=== PATIENT | male | born 1970 | race Caucasian/White ===

== ENCOUNTER 2018-07-27 12:30 | Outpatient (CLI) | payer BC ==
[~2018-07-27] VITALS: Ht 172.7 cm; Wt 94.8 kg
[~2018-07-27 12:30] MED LIST: CIPR500T78 PO; OXYC-12 PO; TAMS0.4C9 PO
== END 2018-07-27 12:34 | disposition home or self-care (01) ==
LOC: PREOP 12:30
PROVIDERS: ATTEND Surgery
DX: Z01.818 Encounter for other preprocedural examination (principal)

== ENCOUNTER 2018-07-30 12:33 | Day surgery (SDC) | payer BC ==
[~2018-07-30] VITALS: Ht 172.7 cm; Wt 94.8 kg
[2018-07-30] MEDS ORDERED: LACTATED RINGERS 1,000 ML IV STA (12:49)
--- OUTSIDE RECORDS SUMMARY | 2018-07-30 12:49 | XMS REPORT | Continuity of Care Document ---
Author Organization Unknown Address Unknown Allergies Active Description Code Type Severity Reaction Onset Reported/Identified Relationship to Patient Clinical Status Yes No Known Drug Allergies [id number] Drug Allergy Unknown N/A 01/03/2010 Medications There is no data. Problems Date Dx Coded Attending Type Code Diagnosis Diagnosed By 01/03/2010 Ot 873.64 01/03/2010 Ot E000.8 01/03/2010 Ot E029.9 01/03/2010 Ot E849.6 01/03/2010 Ot E928.3 07/12/2014 ERIN ESPAÑA, LOLA Barger Ot 591 HYDRONEPHROSIS 07/12/2014 LOLA KHAN MD Ot 592.1 CALCULUS OF URETER 07/12/2014 ERIN ESPAÑA, LOLA Barger Ot 789.09 ABDOMINAL PAIN, OTHER SPECIFIED SITE 07/18/2014 CHARISSA GARCIA MD Ot 592.1 CALCULUS OF URETER 07/21/2018 CHARISSA GARCIA MD Ot 592.1 CALCULUS OF URETER 07/21/2018 CHARISSA GARCIA MD Ot V72.84 EXAM PRE-OPERATIVE NOS 07/21/2018 CHARISSA GARCIA MD Ot V74.8 SCREEN-BACTERIAL DIS NEC Procedures There is no data. Results There is no data. Encounters ACCT No. Visit Date/Time Discharge Status Pt. Type Provider Facility Loc./Unit Complaint [id number] 07/19/2018 08:00:00 [facility] [id number] 07/18/2014 07:00:00 07/18/2014 10:30:00 DIS Outpatient CHARISSA GARCIA MD [facility] RIGHT URETERAL STONE [id number] 07/17/2014 13:49:00 07/17/2014 23:59:59 CLS Outpatient CHARISSA GARCIA MD [facility] PREOP RIGHT URETERAL STONE [id number] 07/11/2014 21:19:00 07/12/2014 00:00:00 DIS Emergency ERIN ESPAÑA, LOLA Barger [facility] ER R SIDE PAIN [id number] 07/30/2018 14:00:00 PEN Preadmit JUDITH GALVEZ DO [facility] ENDO FAMILY HX COLON CA/BLOOD IN STOOLS [id number] 01/03/2010 22:18:00 Document Registration
--- OUTSIDE RECORDS SUMMARY | 2018-07-30 12:49 | XMS REPORT ---
Author Author CARIN CHO Organization [facility] Address [address] [place] [address] Care Team Providers Care Neonatal Specialist Name Role Phone CARIN CHO Unavailable PROBLEMS Type Condition ICD9-CM Code SVB10-CV Code Onset Dates Condition Status SNOMED Code Problem Constipation, unspecified constipation type K59.00 Active [id number] ALLERGIES No Known Allergies ENCOUNTERS Encounter Location Date Diagnosis [facility] [address] [facility] [id number] [address] Jun, Sinus pressure J34.89 ; Cough R05 and Constipation, unspecified constipation type K59.00 IMMUNIZATIONS Vaccine Route Administration Date Status SOLUMEDROL (UP TO 125 MG) IM Intramuscular July 10, 2017 Administered SOCIAL HISTORY Never Assessed REASON FOR VISIT chest congestion, cough, thinks he has a sinus infection. been sick for over 2 weeks. also had some abdominal pain...felt like he was constipated. that has now subsided. [place] PLAN OF CARE Activity Details Follow Up prn Reason: VITAL SIGNS Height 68 in 2017-07-10 Weight 205.0 lbs 2017-07-10 Temperature 98.7 degrees Fahrenheit 2017-07-10 Heart Rate 80 bpm 2017-07-10 Respiratory Rate 2017-07-10 BMI 31.17 kg/m2 2017-07-10 Blood pressure systolic 128 mmHg 2017-07-10 Blood pressure diastolic 76 mmHg 2017-07-10 MEDICATIONS Medication Instructions Dosage Frequency Start Date End Date Duration Status Flonase 50 MCG/ACT Nasally twice a day 1 spray in each nostril 12h Jun, 07 days Active Zithromax 250 MG Orally Once a day 2 tablets on the first day, then 1 tablet daily for 4 days 24h Jun, Jun, 5 day(s) Active RESULTS No Results PROCEDURES Procedure Date Ordered Result Body Site SOLUMEDROL (UP TO 125 MG) July 10, 2017 THER/PROPH/DIAG INJ, SC/IM July 10, 2017 INSTRUCTIONS MEDICATIONS ADMINISTERED No Known Medications MEDICAL (GENERAL) HISTORY Type Description Date Surgical History spleenectomy 1992 Surgical History T&A 1979
[2018-07-30] MEDS ORDERED: LIDOCAINE JELLY 2% 6 ML SYRINGE MM PRN (13:00)
[2018-07-30 13:05] VITALS: BP 143/97
[2018-07-30] MEDS ORDERED: MIDAZOLAM 5 MG/5 ML (VERSED) VIAL ONE (13:18)
[2018-07-30] MEDS ORDERED: PROPOFOL INJECTION 50 ML IV ONE (13:18)
--- NOTE | 2018-07-30 14:10 | Progress Note-Pre Operative ---
Pre-Operative Progress Note H&P Reviewed The H&P was reviewed, patient examined and no changes noted. Date Seen by Provider: July 30, 2018 Time Seen by Provider: 14:09 Date H&P Reviewed: July 30, 2018 Time H&P Reviewed: 14:09 Pre-Operative Diagnosis: family hx colon cancer, blood in stool, hx polyps JUDITH GALVEZ DO July 30, 2018 14:10
[2018-07-30 14:40] VITALS: BP 118/69
--- NOTE | 2018-07-30 14:40 | Progress Note-Post Operative ---
Post-Operative Progess Note Surgeon (s)/Museum Curator (s) Surgeon JUDITH GALVEZ DO Museum Curator: na Pre-Operative Diagnosis family hx colon cancer, blood in stool, hx polyps Post-Operative Diagnosis descending and sigmoid polyps Procedure & Operative Findings Date of Procedure 07/30/18 Procedure Performed/Findings colonoscopy with hot bx polypectomy x 2 and snare polypectomy x 1 Anesthesia Type per fixed wing aircraft flight mechanic Estimated Blood Loss Estimated blood loss (mL): none Specimens/Packing Specimens Removed descending and sigmoid polyps JUDITH GALVEZ DO July 30, 2018 14:40
--- NOTE | 2018-07-30 14:43 | Discharge Inst-Simple/Standard ---
Discharge Inst-Standard Patient Instructions/Follow Up Plan of Care/Instructions/FU: 2 weeks zita Activity as Tolerated: Yes Discharge Diet: Regular Diet JUDITH GALVEZ DO July 30, 2018 14:43
[2018-07-30 15:10] VITALS: BP 143/92
[2018-07-30 15:49] VITALS: BP 143/92
--- NOTE | 2018-07-31 02:54 | OPERATIVE REPORT ---
DATE OF SERVICE: 07/30/2018 PREOPERATIVE DIAGNOSES: History of polyps, blood in stool, family history of colon cancer. POSTOPERATIVE DIAGNOSES: Descending and sigmoid colon polyps. PROCEDURE: Colonoscopy with hot biopsy polypectomy x2 and snare polypectomy x1. SURGEON: Judith Zaidi DO ANESTHESIA: Per HEAD CONCIERGE. ESTIMATED BLOOD LOSS: None. COMPLICATIONS: None. INDICATIONS: The patient is a 47-year-old male in need of colonoscopy for evaluation as noted above. The patient understands risks and benefits and wishes to proceed with procedure. The consent was signed in the chart. DESCRIPTION OF PROCEDURE: The patient was taken to the endoscopy suite, placed in left lateral recumbent position. Timeout was performed. A digital rectal exam was performed. There were no palpable polyps, masses or ulcerations. Scope was inserted in the rectum and advanced all the way to the cecum with minimal difficulty. Prep was adequate. Scope was then slowly retracted back. There were no polyps, masses or ulcerations in the cecum, ascending, transverse, descending colon. In the descending colon, a small polyp was present, in which hot biopsy polypectomy was performed. Scope was then continuously retracted back into the sigmoid colon where there was small larger polyp present. Hot biopsy polypectomy was performed on the smaller polyp and snare polypectomy was performed on the larger polyp. Scope was then continuously retracted back into the rectum where it was also retroflexed noting no other pathology. Scope was returned to its normal position, slowly withdrawn until completely removed noting no other pathology. RECOMMENDATIONS: Because of the polyps one being larger, would recommend repeat colonoscopy in three years. If he has any issues before that, he will be seen at that time, also having follow up in the office in 2 weeks to discuss pathology results. Job ID: [id number] DocumentID: [id number] Dictated Date: 07/30/2018 14:46:24 Procurement Intern Date: 07/31/2018 02:53:29 Dictated By: JUDITH ZAIDI DO
== END 2018-07-30 15:15 | disposition home or self-care (01) ==
LOC: ENDO 12:33
PROVIDERS: ATTEND Surgery
DX: D12.4 Benign neoplasm of descending colon (principal); D12.5 Benign neoplasm of sigmoid colon; K63.5 Polyp of colon; K92.1 Melena; Z86.010 Personal history of colon polyps; Z80.0 Family history of malignant neoplasm of digestive organs; K21.9 Gastro-esophageal reflux disease without esophagitis; K44.9 Diaphragmatic hernia without obstruction or gangrene
CPT/HCPCS: 88305

== ENCOUNTER 2020-12-10 08:16 | Emergency (ER) | payer SELFPAY ==
[~2020-12-10] VITALS: Ht 172.7 cm; Wt 95.3 kg
[2020-12-10] MEDS ORDERED: LACTATED RINGERS 1,000 ML IV ONE ×2 (09:23→09:30)
[2020-12-10] MEDS ORDERED: ONDANSETRON 4 MG/2 ML (SDV) Z0FRAN ONE (09:24)
[2020-12-10 09:30] LABS: BASOPHILS % (AUTO) 0 % (0-10); EOSINOPHILS % (AUTO) 0 % (0-10); HEMATOCRIT 49 % (40-54); HEMOGLOBIN 16.7 g/dL (13.3-17.7); LYMPHOCYTES # (AUTO) 1.1 10^3/uL (1.0-4.0); LYMPHOCYTES % (AUTO) 19 % (12-44); MEAN CORPUSCULAR HEMOGLOBIN 33 pg (25-34); MEAN CORPUSCULAR HGB CONC 34 g/dL (32-36); MEAN CORPUSCULAR VOLUME 95 fL (80-99); MEAN PLATELET VOLUME 10.1 fL (9.0-12.2); MONOCYTES # (AUTO) 0.3 10^3/uL (0.0-1.0); MONOCYTES % (AUTO) 6 % (0-12); NEUTROPHILS # (AUTO) 4.5 10^3/uL (1.8-7.8); NEUTROPHILS % (AUTO) 75 % (42-75); PLATELET COUNT 319 10^3/uL (130-400)
[2020-12-10] MEDS ORDERED: ACETAMINOPHEN 500 MG TAB (TYLENOL) PO ONE (09:30)
[2020-12-10] MEDS ORDERED: ONDANSETRON 4 MG/2 ML (SDV) Z0FRAN IVP ONE (09:30)
[2020-12-10 09:42] LABS: ALBUMIN 4.1 GM/DL (3.2-4.5); POTASSIUM 3.5 MMOL/L (3.6-5.0)
[2020-12-10 09:44] LABS: CALCIUM 8.9 MG/DL (8.5-10.1)
[2020-12-10 09:45] LABS: TOTAL PROTEIN 7.4 GM/DL (6.4-8.2)
[2020-12-10 09:47] LABS: BILIRUBIN,TOTAL 0.3 MG/DL (0.1-1.0)
[2020-12-10 09:49] LABS: CREATININE SERUM 0.85 MG/DL (0.60-1.30)
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
[2020-12-10 10:27] LABS: ABG BASE EXCESS 0.7 MMOL/L (-2.5-2.5); ABG OXYGEN SATURATION 93 % (94-100); ABG PCO2 39 MMHG (35-45); ABG PH 7.42 (7.37-7.43); ABG PO2 68 MMHG (79-93); ABG TCO2 25.4 MMOL/L (21.0-31.0); ALLENS TEST YES-POS
[2020-12-10 10:28] LABS: INSPIRED O2 RA; PATIENT TEMP 101.5; VENTILATOR NO
--- NOTE | 2020-12-10 11:43 | Diagnostic Imaging Report ---
INDICATION: COVID patient, nausea, vomiting, shortness of air, fever. FINDINGS: Some new patchy and curvilinear zones of infiltrate and nonspecific atelectasis, left greater than right. Heart size itself is stable and normal. No vascular congestion. No effusion or pneumothorax. IMPRESSION: New vague perihilar infiltrates with likely some partial atelectasis on the left superimposed. No failure pattern or pleural pathology. Dictated by: Dictated on workstation # [id number]
[2020-12-10] MEDS ORDERED: oxygen (11:55)
[2020-12-10] MEDS ORDERED: DEXA6TAB PO (11:57)
[2020-12-10 12:50] VITALS: BP 123/83
== END 2020-12-10 12:50 | disposition home or self-care (01) ==
LOC: EDUNIT# 08:16 → ER 08:19
DX: U07.1 COVID-19 (principal); R09.02 Hypoxemia
CPT/HCPCS: 36415; 71045; 80053; 82805; 84145; 84484; 85025; 85379; 86141; 93005; 96361; 96374; 96375

== ENCOUNTER 2021-11-07 12:05 | Outpatient (CLI) | payer BC ==
[~2021-11-07] VITALS: Ht 172.7 cm; Wt 94.8 kg
[~2021-11-07 12:05] MED LIST changes: +DEXA6TAB PO; +oxygen
[2021-11-08] MEDS ORDERED: LISI20TA26 PO (10:53)
[2021-11-08] MEDS ORDERED: ATOR40TA70 PO (10:53)
[2021-11-08] MEDS ORDERED: FLUT15.845 NS (10:53)
== END 2021-11-08 10:54 | disposition home or self-care (01) ==
LOC: PREOP 12:05
PROVIDERS: ATTEND Surgery
DX: Z01.818 Encounter for other preprocedural examination (principal); Z12.11 Encounter for screening for malignant neoplasm of colon; K21.9 Gastro-esophageal reflux disease without esophagitis; Z86.010 Personal history of colon polyps

== ENCOUNTER 2021-11-15 13:04 | Day surgery (SDC) | payer BC ==
[~2021-11-15] VITALS: Ht 172.7 cm; Wt 94.8 kg
[~2021-11-15 13:04] MED LIST changes: +ATOR40TA70 PO; +FLUT15.845 NS; +LISI20TA26 PO
[2021-11-15] MEDS ORDERED: LACTATED RINGERS 1,000 ML IV STA (13:06)
--- NOTE | 2021-11-15 13:10 | Progress Note-Pre Operative ---
Pre-Operative Progress Note Date of Available H&P: Nov 06, 2021 Date H&P Reviewed: Nov 15, 2021 Time H&P Reviewed: 13:10 History & Physical: H&P Reviewed, Patient Examed, No changes noted Pre-Operative Diagnosis: hx polyps, gerd JUDITH GALVEZ DO Nov 15, 2021 13:10
[2021-11-15] MEDS ORDERED: HURRICAINE EXT TUBE (BENZOCAINE) XX PRN (13:15)
[2021-11-15 13:27] VITALS: BP 145/112
[2021-11-15] MEDS ORDERED: MIDAZOLAM 2 MG/2 ML (VERSED) VIAL ONE (14:05)
[2021-11-15] MEDS ORDERED: PROPOFOL INJECTION 50 ML IV ONE (14:05)
[2021-11-15] MEDS ORDERED: PANT40TA2 PO (14:34)
[2021-11-15 14:35] VITALS: BP 88/58
--- NOTE | 2021-11-15 14:36 | Discharge Inst-Simple/Standard ---
Discharge Inst-Standard Discharge Medications New, Converted or Re-Newed RX: Transmitted to Pharmacy Patient Instructions/Follow Up Plan of Care/Instructions/FU: 2 weeks Dyan Activity as Tolerated: Yes Discharge Diet: Regular Diet JUDITH GALVEZ DO Nov 15, 2021 14:36
--- NOTE | 2021-11-15 14:38 | Progress Note-Post Operative ---
Post-Operative Progess Note Surgeon (s)/Manager Planning (s) Surgeon JUDITH GALVEZ DO Manager Planning: na Pre-Operative Diagnosis hx polyps, gerd Post-Operative Diagnosis minimal diverticulosis hemorhroids gastritis Procedure & Operative Findings Date of Procedure 11/15/21 Procedure Performed/Findings egd c biopsies, colonoscopy Anesthesia Type per guest room inspector Estimated Blood Loss Estimated blood loss (mL): none Specimens/Packing Specimens Removed antrum, body, ge JUDITH GALVEZ DO Nov 15, 2021 14:38
--- NOTE | 2021-11-15 15:09 | Anesthesia-General Post-Op ---
MAC Patient Condition Mental Status/LOC: Same as Preop Cardiovascular: Satisfactory Nausea/Vomiting: Absent Respiratory: Satisfactory Pain: Controlled Complications: Absent Post Op Complications Complications None Follow Up Care/Instructions Patient Instructions None needed. Anesthesiology Discharge Order Discharge Order Patient is doing well, no complaints, stable vital signs, no apparent adverse anesthesia problems. No complications reported per nursing. KYLIE GUDINO CRNA Nov 15, 2021 15:09
[2021-11-15 15:10] VITALS: BP 143/101
[2021-11-15 15:20] VITALS: BP 143/101
--- NOTE | 2021-11-15 15:58 | OPERATIVE REPORT ---
DATE OF SERVICE: 11/15/2021 PREOPERATIVE DIAGNOSIS: History of polyps, gastroesophageal reflux disease. POSTOPERATIVE DIAGNOSES: Minimal diverticulosis, hemorrhoids, gastritis, hiatal hernia. PROCEDURE: EGD with biopsies, colonoscopy. SURGEON: Judith Zaidi DO ANESTHESIA: Per JAR FILLER. ESTIMATED BLOOD LOSS: None. COMPLICATIONS: None. SPECIMENS: Antrum, body and GE junction. INDICATIONS: The patient is a 51-year-old male with need for colonoscopy due to history of polyps and having GERD symptoms. He understands risks and benefits of procedure and wishes to proceed. Consent was signed in the chart. DESCRIPTION OF PROCEDURE: The patient was taken to the endoscopy suite, placed in left lateral recumbent position. Timeout was performed. Scope was inserted in mouth, down the esophagus, stomach and into the duodenum without difficulty. No polyps, masses or ulcerations within the duodenum. Scope was slowly retracted back into the stomach, which had some gastritis appearance and area in the body as well with inflamed polyps or reactive mucosa. Biopsy of the antrum and body were obtained. Scope was retroflexed noting a hiatal hernia, moderate to large size. Scope was then returned to its normal position, slowly withdrawn to distal esophagus. No polyps, masses or ulcerations. Biopsy of the GE junction was obtained. Scope was slowly retracted back to completely remove, noting no other pathology. Digital rectal exam was performed noting significant hemorrhoidal disease. Scope was inserted in the rectum and advanced all the way to cecum with minimal difficulty. Prep was adequate. Scope was slowly retracted back. No polyps, masses or ulcerations in the cecum, ascending, transverse, descending and sigmoid colon. Once in the rectum, scope was retroflexed again noting hemorrhoids. Scope was returned to its normal position, slowly withdrawn until completely removed. Also minimal diverticulosis was also noted throughout the colon. The patient tolerated the procedure well without any complications, taken to recovery room in stable condition. RECOMMENDATIONS: The patient will need repeat colonoscopy in 5 years due to history of polyps. Would recommend high fiber diet due to diverticulosis. The patient will be started on Protonix 40 mg daily due to his gastritis. We will have him follow up in 2 weeks to reassess. Job ID: [id number] DocumentID: [id number] Dictated Date: 11/15/2021 14:41:31 Heat And Vent Aircraft Mechanic Date: 11/15/2021 15:58:20 Dictated By: JUDITH ZAIDI DO
== END 2021-11-15 15:20 | disposition home or self-care (01) ==
LOC: ENDO 13:04
PROVIDERS: ATTEND Surgery
DX: Z12.11 Encounter for screening for malignant neoplasm of colon (principal); K29.70 Gastritis, unspecified, without bleeding; K44.9 Diaphragmatic hernia without obstruction or gangrene; K57.30 Diverticulosis of large intestine without perforation or abscess without bleeding; K64.9 Unspecified hemorrhoids; K21.9 Gastro-esophageal reflux disease without esophagitis; Z28.310 Unvaccinated for COVID-19; E66.9 Obesity, unspecified; Z68.31 Body mass index [BMI] 31.0-31.9, adult; Z86.010 Personal history of colon polyps